=== PATIENT | male | born 1990 | race Caucasian/White ===

== ENCOUNTER 2017-03-25 07:15 | Emergency (ER) | payer OTHER ==
[~2017-03-25] VITALS: Ht 182.9 cm; Wt 79.4 kg
--- NOTE | 2017-03-25 07:31 | NUR ---
DR BURR AT THE BEDSIDE FOR EVAL AND EXAM.
[2017-03-25 07:40] LABS: BASOPHILS % (AUTO) 0.4 % (0.0-2.0); EOSINOPHILS # (AUTO) 0.1 K/uL (0.0-0.7); EOSINOPHILS % (AUTO) 0.8 % (0.0-7.0); HEMATOCRIT 44.1 % (40-50); HEMOGLOBIN 14.5 G/DL (14.0-18.0); MEAN CORPUSCULAR HEMOGLOBIN 30.6 UUG (27.0-31.0); MEAN CORPUSCULAR HGB CONC 33 g/dL (32.0-37.0); MONOCYTES # (AUTO) 1.3 K/UL (0.1-1.30); MONOCYTES % (AUTO) 12.7 % (0.0-11.0); NEUTROPHILS # (AUTO) 7.8 K/UL (1.8-8.9); NEUTROPHILS % (AUTO) 76.1 % (38.5-71.5); PLATELET COUNT (AUTO) 220 K/UL (150-450); RED BLOOD CELL COUNT(AUTO) 4.74 MIL/UL (4.7-6.1); WHITE BLOOD COUNT (AUTO) 10.2 K/UL (4.0-11.2)
[2017-03-25] MEDS ORDERED: IV NORMAL SALINE 1000 ML BAG IV ONE (07:45)
[2017-03-25] MEDS ORDERED: ONDANSETRON IV *ER 4 MG/2 ML VIAL IV ONE (07:45)
[2017-03-25] MEDS ORDERED: MORPHINE SULFATE 4 MG/1 ML DISP.SYRIN IV ONE (07:45)
[2017-03-25] MEDS ORDERED: ONDANSETRON 4 MG/2 ML VIAL ONE (07:50)
[2017-03-25] MEDS ORDERED: MORPHINE SULFATE 4 MG/1 ML DISP.SYRIN ONE (07:50)
[2017-03-25 08:07] LABS: BILIRUBIN,DIRECT 0.1 mg/dL (0.0-0.2); BILIRUBIN,TOTAL 0.6 mg/dL (0.2-1.0); TOTAL PROTEIN, SERUM 7.6 g/dL (6.4-8.2)
--- NOTE | 2017-03-25 08:48 | NUR ---
PT SIGNED CONSENT FOR IV CONTRAST FOR CT.
[2017-03-25] MEDS ORDERED: IV NORMAL SALINE 250 ML IV ONE (09:14)
[2017-03-25] MEDS ORDERED: IOHEXOL 350 100 ML INFUS..BTL ONE (09:14)
--- NOTE | 2017-03-25 09:25 | NUR ---
PT OUT OF ER FOR CT.
--- NOTE | 2017-03-25 10:36 | NUR ---
Patient is resting comfortably in bed with eyes closed, NAD noted.
[2017-03-25 11:10] VITALS: BP 139/82
--- NOTE | 2017-03-25 11:10 | NUR ---
IV removed. Catheter intact and site benign. Pressure and 4x4 gauze applied to site. No bleeding noted.
--- NOTE | 2017-03-25 11:11 | NUR ---
Patient discharged to home in stable conditon. Written and verbal after care instructions given. Patient verbalizes understanding of instructions.
== END 2017-03-25 11:11 | disposition home or self-care (01) ==
LOC: ER 07:15
DX: R07.9 Chest pain, unspecified (principal); Z87.891 Personal history of nicotine dependence
CPT/HCPCS: 36415; 70030-TC; 71010; 85025; 85730; 93005; A4663; J2270; J2405; J7030; J7050; Q9967

== ENCOUNTER 2017-11-30 20:30 | Emergency (ER) | payer SELFPAY ==
[~2017-11-30] VITALS: Ht 182.9 cm; Wt 81.6 kg
[2017-11-30] MEDS ORDERED: TDAP DIPH,PERTUSS,TET VAC/PF 0.5 ML DISP.SYRIN IM ONE ×2 (21:00→21:40)
--- NOTE | 2017-11-30 21:50 | NUR ---
Patient discharged to home in stable conditon. Written and verbal after care instructions given. Patient verbalizes understanding of instructions.
== END 2017-11-30 21:51 | disposition home or self-care (01) ==
LOC: ER 20:31
DX: S01.81XA Laceration without foreign body of other part of head, initial encounter (principal); F17.210 Nicotine dependence, cigarettes, uncomplicated; F12.10 Cannabis abuse, uncomplicated; W51.XXXA Accidental striking against or bumped into by another person, initial encounter; Y93.89 Activity, other specified; Y92.89 Other specified places as the place of occurrence of the external cause; Y99.8 Other external cause status
CPT/HCPCS: 12011; 90471; 90715; 99283; A4663